=== PATIENT | male | born 1945 | race African-American/Black ===

== ENCOUNTER 2017-08-06 00:16 | Emergency (ER) | payer MEDICARE ==
[~2017-08-06] VITALS: Ht 170.2 cm; Wt 74.0 kg
[2017-08-06 02:05] LABS: CLARITY URINE TURBID (CLEAR); COLOR URINE RED (YELLOW); GLUCOSE URINE NEGATIVE (NEGATIVE); KETONES URINE NEGATIVE (NEGATIVE); LEUKOCYTE ESTERASE URINE 3+ (NEGATIVE); NITRITE URINE POSITIVE (NEGATIVE); OCCULT BLOOD URINE 3+ (NEGATIVE); PH URINE 7.5 (4.5-8.0); PROTEIN URINE 3+ (NEGATIVE); SPECIFIC GRAVITY URINE 1.019 (1.005-1.030); UROBILINOGEN URINE 0.2 E.U./dL (0.2-1.0)
[2017-08-06] MEDS ORDERED: LEVOFLOXACIN 500MG TABLET PO ONE (02:45)
[2017-08-06 03:15] VITALS: BP 118/65
== END 2017-08-06 03:57 | disposition home or self-care (01) ==
LOC: ER 00:16
DX: N41.9 Inflammatory disease of prostate, unspecified (principal); I51.9 Heart disease, unspecified; Z85.51 Personal history of malignant neoplasm of bladder
CPT/HCPCS: 81001; 99283